=== PATIENT | female | born 1980 | race Caucasian/White ===

== ENCOUNTER 2019-02-15 16:11 | Inpatient (IN) | payer BC, OTHER ==
[2019-02-15] MEDS ORDERED: ONDANSETRON 4 MG/2 ML VIAL IVP STA (16:32)
[2019-02-15] MEDS ORDERED: SODIUM CHLORIDE 0.9% 1,000 ML IV ONE (16:33)
[2019-02-15] MEDS ORDERED: SODIUM CHLORIDE 0.9% 500 ML 500 ML IV ONE (16:33)
--- NOTE | 2019-02-15 16:33 | ED ---
Abdominal Pain HPI - General Source: patient Mode of arrival: ambulatory Limitations: no limitations <Danielle Gonzalez - Last Filed: 02/15/19 19:49> <uHgo Zelaya - Last Filed: 02/15/19 20:30> - General Chief Complaint: Abdominal Pain Stated Complaint: ABDOMINAL PAIN Time Seen by Provider: 02/15/19 16:19 - History of Present Illness Initial Comments: 38-year-old female presents emergency department for chief complaint of vomiting abdominal pain one hour prior to arrival. Patient states she has pain just above the bellybutton as well as retching vomiting. Patient states is mostly bile. Patient states she has had bowel movements. Patient states she has not had any sick contacts recent travel melanotic or bloody stools. Patient denies any hematemesis states that the vomiting is yellow. Patient states she cannot stop vomiting. Patient states his symptoms persisted for over an hour just severe abdominal pain she presented [facility] for further evaluation. Patient denies any lower abdominal tenderness. Patient denies any chest pain or shortness of breath. Patient states she does have surgical history of previous cholecystectomy. Patient denies . Remaining review of system negative. Upon arrival patient appears uncomfortable, she is currently vomiting. (Danielle Gonzalez) - Related Data Home Medications Medication Instructions Recorded Confirmed Ibuprofen [Motrin Ib] 400 mg PO Q6H PRN 02/15/19 02/15/19 Allergies Allergy/AdvReac Type Severity Reaction Status Date / Time No Known Allergies Allergy Verified 02/15/19 19:42 Review of Systems ROS Other: All systems not noted in ROS Statement are negative. <Danielle Gonzalez - Last Filed: 02/15/19 19:49> ROS Other: All systems not noted in ROS Statement are negative. <Hugo Zelaya - Last Filed: 02/15/19 20:30> ROS Statement: Those systems with pertinent positive or pertinent negative responses have been documented in the HPI. Past Medical History Past Medical History: No Reported History History of Any Multi-Drug Resistant Organisms: None Reported Past Surgical History: Cholecystectomy Past Psychological History: No Psychological Hx Reported Smoking Status: Never smoker Past Alcohol Use History: None Reported Past Drug Use History: None Reported <Danielle Gonzalez - Last Filed: 02/15/19 19:49> General Exam Limitations: no limitations <Danielle Gonzalez - Last Filed: 02/15/19 19:49> - General Exam Comments Initial Comments: General: The patient is awake and alert, vomiting Eye: Pupils are equal, round and reactive to light, extra-ocular movements are intact. No nystagmus. There is normal conjunctiva bilaterally. No signs of i cterus. Ears, nose, mouth and throat: There are moist mucous membranes and no oral lesions. Neck: The neck is supple, there is no tenderness or JVD. Cardiovascular: There is a regular rate and rhythm. No murmur, rub or gallop is appreciated. Respiratory: Lungs are clear to auscultation, respirations are non-labored, breath sounds are equal. No wheezes, stridor, rales, or rhonchi. Gastrointestinal: Soft, non-distended, nontender abdomen soft. The umbilicus, there is palpable hard mass, irreducible, other kumar abdomen without masses or organomegaly noted. There is no rebound, slight guarding. Bowel sounds are unremarkable. Musculoskeletal: Normal ROM, no tenderness. Strength 5/5. Sensation intact. Radial pulses equal bilaterally 2+. Neurological: A&O x 3. CN II-XII intact grossly, There are no obvious motor or sensory deficits. Coordination appears grossly intact. Speech is normal. Skin: Skin is warm and dry and no rashes or lesions are noted. Psychiatric: Cooperative, appropriate mood & affect, normal judgment. (Danielle Gonzalez) Course <Hugo Zelaya - Last Filed: 02/15/19 20:30> Vital Signs 02/15/19 02/15/19 02/15/19 16:16 17:34 20:23 Temperature 97.3 F L 98.0 F 98.2 F Pulse Rate 79 59 L Respiratory 22 16 Rate Blood Pressure 163/83 157/89 O2 Sat by Pulse 99 100 Oximetry - Consultations Consultation #1: With Dr. Fritz who will accept admission requesting NG tube (Hugo Zelaya) Medical Decision Making - Lab Data Result diagrams: 02/15/19 17:50 02/15/19 17:50 <Danielle Gonzalez - Last Filed: 02/15/19 19:49> - Lab Data Result diagrams: 02/15/19 17:50 02/15/19 17:50 <Hugo Zelaya - Last Filed: 02/15/19 20:30> - Medical Decision Making 38-year-old female presenting for vomiting abdominal pain. Patient abdominal pain and a small mass appeared to be an irreducible hernia. CT is obtained revealing incarcerated hernia with partial SBO , I applied ice to the area attempted reduction again however no success. Patient has leukocytosis. And continues to have vomiting despite antiemetics. At this time general surgery wa s contacted who recommended. (Danielle Gonzalez) - Lab Data Lab Results 02/15/19 02/15/19 02/15/19 Range/Units 17:50 17:50 20:01 WBC 13.3 H (3.8-10.6) k/uL RBC 5.16 (3.80-5.40) m/uL Hgb 13.5 (11.4-16.0) gm/dL Hct 40.9 (34.0-46.0) % MCV 79.4 L (80.0-100.0) fL MCH 26.1 (25.0-35.0) pg MCHC 32.9 (31.0-37.0) g/dL RDW 13.3 (11.5-15.5) % Plt Count 479 H (150-450) k/uL Neutrophils % 78 % Lymphocytes % 14 % Monocytes % 5 % Eosinophils % 2 % Basophils % 1 % Neutrophils # 10.4 H (1.3-7.7) k/uL Lymphocytes # 1.8 (1.0-4.8) k/uL Monocytes # 0.6 (0-1.0) k/uL Eosinophils # 0.2 (0-0.7) k/uL Basophils # 0.2 (0-0.2) k/uL Sodium 138 (137-145) mmol/L Potassium 4.4 (3.5-5.1) mmol/L Chloride 106 (98-107) mmol/L Carbon Dioxide 19 L (22-30) mmol/L Anion Gap 13 mmol/L BUN 14 (7-17) mg/dL Creatinine 0.78 (0.52-1.04) mg/dL Est GFR (CKD-EPI)AfAm >90 (>60 ml/min/1.73 sqM) Est GFR (CKD-EPI)NonAf >90 (>60 ml/min/1.73 sqM) Glucose 127 H (74-99) mg/dL Plasma Lactic Acid Bautista 2.3 H* (0.7-2.0) mmol/L Calcium 9.6 (8.4-10.2) mg/dL Total Bilirubin 0.7 (0.2-1.3) mg/dL AST 38 H (14-36) U/L ALT 32 (9-52) U/L Alkaline Phosphatase 68 (38-126) U/L Total Protein 7.8 (6.3-8.2) g/dL Albumin 4.4 (3.5-5.0) g/dL Lipase 31 (23-300) U/L Disposition Is patient prescribed a controlled substance at d/c from ED?: No Time of Disposition: 19:45 Decision to Admit Reason: Admit from EC Decision Date: 02/15/19 Decision Time: 19:45 <Danielle Gonzalez - Last Filed: 02/15/19 19:49> Is patient prescribed a controlled substance at d/c from ED?: No <Hugo Zelaya - Last Filed: 02/15/19 20:30> Clinical Impression: Incarcerated hernia, Abdominal pain, Leukocytosis, Intractable vomiting Disposition: ADMITTED IP TO THIS [facility] Condition: Stable
[2019-02-15 17:56] LABS: Basophils # (A) 0.2 k/uL (0-0.2); Basophils % (A) 1 %; Eosinophils # (A) 0.2 k/uL (0-0.7); Eosinophils % (A) 2 %; HCT 40.9 % (34.0-46.0); HGB 13.5 gm/dL (11.4-16.0); Lymphocytes # (A) 1.8 k/uL (1.0-4.8); Lymphocytes % (A) 14 %; MCH 26.1 pg (25.0-35.0); MCHC 32.9 g/dL (31.0-37.0); MCV 79.4 fL (80.0-100.0); Mean Platelet Volume 8.1; Monocytes # (A) 0.6 k/uL (0-1.0); Monocytes % (A) 5 %; Neutrophils # (A) 10.4 k/uL (1.3-7.7); Neutrophils % (A) 78 %; Platelet Count 479 k/uL (150-450); RBC 5.16 m/uL (3.80-5.40); RDW 13.3 % (11.5-15.5); WBC 13.3 k/uL (3.8-10.6)
[2019-02-15 18:05] LABS: ALT 32 U/L (9-52); AST 38 U/L (14-36); African American GFR (CKD) >90 (>60 ml/min/1.73 sqM); Albumin 4.4 g/dL (3.5-5.0); Alkaline Phosphatase 68 U/L (38-126); Anion Gap 13 mmol/L; Blood Urea Nitrogen 14 mg/dL (7-17); Calcium 9.6 mg/dL (8.4-10.2); Carbon Dioxide 19 mmol/L (22-30); Chloride 106 mmol/L (98-107); Glucose 127 mg/dL (74-99); Sodium 138 mmol/L (137-145); Total Bilirubin 0.7 mg/dL (0.2-1.3); Total Protein 7.8 g/dL (6.3-8.2)
[2019-02-15 18:06] LABS: Potassium 4.4 mmol/L (3.5-5.1)
--- NOTE | 2019-02-15 18:34 | CT ---
EXAMINATION TYPE: CT abdomen pelvis w con DATE OF EXAM: 02/15/2019 COMPARISON: None HISTORY: abdominal pain CT DLP: 2513.6 mGycm Automated exposure control for dose reduction was used. TECHNIQUE: Helical acquisition of images was performed from the lung bases through the pelvis. CONTRAST: Performed without Oral Contrast and with IV Contrast, patient injected with 100 mL of Isovue 300. FINDINGS: Lung bases are clear. There is no pleural effusion. Heart size is normal. There is no pericardial eff usion. There is minimal fatty infiltration of the liver. There are clips from cholecystectomy. Spleen appear s normal. Bile ducts are not dilated. Stomach appears normal. There is no evidence of pancreatic mass . There is no adrenal mass. Kidneys show satisfactory contrast opacification. There is no hydronephrosi s. There is no evidence of renal calculus. Ureters are not dilated. There is no retroperitoneal adeno matthew. Bladder distends smoothly. Uterus is anteverted. There is no free fluid in the pelvis. There i s no sign of pelvic mass. There is no inguinal hernia. There is umbilical hernia that contains incarcerated loop of small bowel. There is mild proximal smal l bowel distention with fluid. Small bowel however is not dilated. Small bowel measures up to 2 cm. Appendix appears normal. There is no ascites. There is no mesenteric edema. There is no evidence of f ree air. Lumbar spine is intact. Disc spaces are normal. There is no compression fracture. IMPRESSION: THERE IS INCARCERATED UMBILICAL HERNIA THAT CONTAINS SMALL BOWEL. THERE IS A PARTIAL MECHANICAL OBSTR UCTION.
[2019-02-15] MEDS ORDERED: METOCLOPRAMIDE 5 MG/ML 2 ML VIAL IVP STA (19:03)
[2019-02-15] MEDS ORDERED: NALOXONE 0.4 MG/ML 1 ML VIAL IV PRN (19:43)
[2019-02-15] MEDS ORDERED: ONDANSETRON 4 MG/2 ML VIAL IVP PRN ×2 (19:43→21:12)
[2019-02-15] MEDS: SODIUM CHLORIDE 0.9% 1,000 ML IV SCH (19:54)
[2019-02-15] MEDS: MORPHINE SULFATE 4 MG/ML SYRINGE IV PRN ×2 (20:07→23:30)
[2019-02-15] MEDS ORDERED: SODIUM CHLORIDE 0.9% 2,000 ML IV ONE (21:08)
[2019-02-15 21:31] VITALS: BMI 45.1
[2019-02-15] MEDS: PIPERACILLIN-TAZOBACTAM 3.375 GM in SODIUM CHLORIDE 0.9% 100 ML IVPB SCH (23:36)
[2019-02-16] MEDS: METOCLOPRAMIDE 5 MG/ML 2 ML VIAL IVP SCH ×3 (01:13→14:19)
[2019-02-16 02:51] VITALS: RESP 16
[2019-02-16] MEDS: SODIUM CHLORIDE 0.9% 1,000 ML IV SCH ×3 (06:33→15:21)
[2019-02-16] MEDS: PIPERACILLIN-TAZOBACTAM 3.375 GM in SODIUM CHLORIDE 0.9% 100 ML IVPB SCH ×2 (08:09→15:19)
[2019-02-16] MEDS ORDERED: ACETAMINOPHEN TAB 325 MG TAB PO PRN (08:30)
[2019-02-16 14:23] VITALS: BP 101/60; PULSE 62; TEMP 98.7
--- NOTE | 2019-02-16 15:20 | P.GSHP ---
History of Present Illness H&P Date: 02/16/19 CHIEF COMPLAINT: Small bowel obstruction HISTORY OF PRESENT ILLNESS: The patient is a 38 year old female who comes in with less than 24 hr history of acute onset moderate to severe periumbilical deborah n with obstipation. She has findings of incarcerated umbilcal hernia with small bowel obstruction found on imaging. Since admission and without nasogastric tube, she is passing flatus and having bowel movements now. She has no abdominal pain. No reports of fevers or chills. She had nausea. No acute vomiting. She is tolerating liquid diet. She reports prior episodes of crampy gas pain, intermittent for over 2 years. Since admission, she is doing well. PAST MEDICAL HISTORY: See list. PAST SURGICAL HISTORY: See list. MEDICATIONS: See list. ALLERGIES: See list. SOCIAL HISTORY: See list. FAMILY HISTORY: See list. REVIEW OF ORGAN SYSTEMS: CONSTITUTIONAL: No fevers or chills. No recent weight loss. EYES: Denies any trouble with vision. No glasses. HEENT: No difficulties with hearing. No nosebleeds. No difficulty swallowing. RESPIRATORY: Denies pneumonia. Denies any troubles with breathing or dyspnea on exertion. CARDIOVASCULAR: Denies any chest pain, palpitations, or recent heart attacks. GASTROINTESTINAL: Denies fatty food intolerance. Had change in bowel habits and gas bloat. GENITOURINARY: Denies any blood in urine or increased urinary frequency. NEUROLOGICAL: Denies any numbness or tingling along the distal extremities. No seizure disorders or headaches. MUSCULOSKELETAL: Occassional back pain, stiffness or joint arthritis. SKIN: No current skin cancer. No rash. PSYCHIATRIC: Denies current depression or suicidal thoughts. ENDOCRINE: Denies current thyroid disorders. Denies any blood sugar glucose intolerance. HEME/LYMPHATIC: Denies any lumps and bumps around the neck. No recent deep venous thrombosis. ALLERGY/IMMUNOLOGY: No immunoglobulin therapy. No immune deficiencies. BREAST: Denies current breast lumps, pain or nipple discharge. PHYSICAL EXAM: VITALS: Reviewed CONSTITUTIONAL: Well developed and in no acute distress. EYES: Conjuctivae without sclera icterus. Pupils are equally round and reactive to light. Extraocular movements grossly intact. HEAD, EARS, NOSE, THROAT: Moist buccal mucosa. Head is atraumatic, normocephalic. Hears conversational speech. No nasal drainage. Good dentition. NECK: Supple. No JV distention. No thyroidomegaly. RESPIRATORY: Non-labored respirations and equal bilateral excursions. No gross wheezes. CARDIOVASCULAR: Regular rate and rhythm. Extremities without moderate edema. Palpable 2+ radial pulses. ABDOMEN: Soft. Non-tender. Nondistended. LYMPH: No neck lymphadenopathy. No axillary lymphadenopathy. MUSCULOSKELETAL: Nail and fingers with good capillary refill. SKIN: Warm and well perfused with good skin turgor. NEUROLOGIC: Cranial nerves I through XII grossly intact. Sensation upper and extremities intact. No focal or lateralizing signs. PSYCH: Appropriate affect. Alert and oriented to person, place and time. Displays appropriate insight. CLINCAL LABS: Reviewed. WBC over 13,000 on admission. Platelets 479,000 elevated RADIOLOGY: Report reviewed with small bowel obstruction IMAGING: Independently reviewed with small bowel incarcerated at the umbilicus ASSESSMENT: 1. Incarcerated umbilical hernia with small bowel obstruction with PLAN: 1. She has improved since admission and may be discharged 2. Discharge instructions reviewed with outpatient hernia repair 3. Light diet and no lifting advised until follow up in the office. Past Medical History Past Medical History: No Reported History History of Any Multi-Drug Resistant Organisms: None Reported Past Surgical History: Cholecystectomy, Tonsillectomy Past Anesthesia/Blood Transfusion Reactions: Postoperative Nausea & Vomiting (PONV) Past Psychological History: No Psychological Hx Reported Smoking Status: Former smoker Past Alcohol Use History: None Reported Past Drug Use History: Marijuana Additional Drug Use History / Comment(s): Occasionial marijuana use - Past Family History Sister(s) Additional Family Medical History / Comment(s): kidney disease Mother Family Medical History: No Reported History Medications and Allergies Home Medications Medication Instructions Recorded Confirmed Type Ibuprofen [Motrin Ib] 400 mg PO Q6H PRN 02/15/19 02/15/19 History Allergies Allergy/AdvReac Type Severity Reaction Status Date / Time No Known Allergies Allergy Verified 02/15/19 19:42 Surgical - Exam Vital Signs Temp Pulse Resp BP Pulse Ox 97.3 F L 79 22 163/83 99 02/15/19 16:16 02/15/19 16:16 02/15/19 16:16 02/15/19 16:16 02/15/19 16:16 Results - Labs 02/16/19 16:00 09/27/19 17:50 Abnormal Lab Results - Last 24 Hours (Table) 02/15/19 02/15/19 02/15/19 Range/Units 17:50 17:50 20:01 WBC 13.3 H (3.8-10.6) k/uL MCV 79.4 L (80.0-100.0) fL Plt Count 479 H (150-450) k/uL Neutrophils # 10.4 H (1.3-7.7) k/uL Carbon Dioxide 19 L (22-30) mmol/L Glucose 127 H (74-99) mg/dL Plasma Lactic Acid Bautista 2.3 H* (0.7-2.0) mmol/L AST 38 H (14-36) U/L Diabetes panel 02/15/19 Range/Units 17:50 Sodium 138 (137-145) mmol/L Potassium 4.4 (3.5-5.1) mmol/L Chloride 106 (98-107) mmol/L Carbon Dioxide 19 L (22-30) mmol/L BUN 14 (7-17) mg/dL Creatinine 0.78 (0.52-1.04) mg/dL Glucose 127 H (74-99) mg/dL Calcium 9.6 (8.4-10.2) mg/dL AST 38 H (14-36) U/L ALT 32 (9-52) U/L Alkaline Phosphatase 68 (38-126) U/L Total Protein 7.8 (6.3-8.2) g/dL Albumin 4.4 (3.5-5.0) g/dL Calcium panel 02/15/19 Range/Units 17:50 Calcium 9.6 (8.4-10.2) mg/dL Albumin 4.4 (3.5-5.0) g/dL Pituitary panel 02/15/19 Range/Units 17:50 Sodium 138 (137-145) mmol/L Potassium 4.4 (3.5-5.1) mmol/L Chloride 106 (98-107) mmol/L Carbon Dioxide 19 L (22-30) mmol/L BUN 14 (7-17) mg/dL Creatinine 0.78 (0.52-1.04) mg/dL Glucose 127 H (74-99) mg/dL Calcium 9.6 (8.4-10.2) mg/dL Adrenal panel 02/15/19 Range/Units 17:50 Sodium 138 (137-145) mmol/L Potassium 4.4 (3.5-5.1) mmol/L Chloride 106 (98-107) mmol/L Carbon Dioxide 19 L (22-30) mmol/L BUN 14 (7-17) mg/dL Creatinine 0.78 (0.52-1.04) mg/dL Glucose 127 H (74-99) mg/dL Calcium 9.6 (8.4-10.2) mg/dL Total Bilirubin 0.7 (0.2-1.3) mg/dL AST 38 H (14-36) U/L ALT 32 (9-52) U/L Alkaline Phosphatase 68 (38-126) U/L Total Protein 7.8 (6.3-8.2) g/dL Albumin 4.4 (3.5-5.0) g/dL Assessment and Plan (1) Umbilical hernia with obstruction but no gangrene Status: Acute Code(s): K42.0 - UMBILICAL HERNIA WITH OBSTRUCTION, WITHOUT GANGRENE SNOMED Code(s): 766635395 (2) Morbid obesity due to excess calories Status: Acute Code(s): E66.01 - MORBID (SEVERE) OBESITY DUE TO EXCESS CALORIES SNOMED Code(s): 441895297 (3) Adult BMI 37.0-37.9 kg/sq m Status: Acute Code(s): Z68.37 - BODY MASS INDEX (BMI) 37.0-37.9, ADULT SNOMED Code(s): 218991135 (4) Abdominal pain Status: Acute Code(s): R10.9 - UNSPECIFIED ABDOMINAL PAIN SNOMED Code(s): 13233903 (5) Incarcerated hernia Status: Acute Code(s): K46.0 - UNSP ABDOMINAL HERNIA WITH OBSTRUCTION, WITHOUT GANGRENE SNOMED Code(s): 85091011 (6) Intractable vomiting Status: Acute Code(s): R11.10 - VOMITING, UNSPECIFIED SNOMED Code(s): 861030987 (7) Leukocytosis Status: Acute Code(s): D72.829 - ELEVATED WHITE BLOOD CELL COUNT, UNSPECIFIED SNOMED Code(s): 979016434 (8) Partial small bowel obstruction Status: Acute Code(s): K56.600 - PARTIAL INTESTINAL OBSTRUCTION, UNSPECIFIED TO CAUSE SNOMED Code(s): 800921164
--- NOTE | 2019-02-16 15:21 | P.DS ---
Providers Date of admission: 02/15/19 20:08 Expected date of discharge: 02/16/19 Attending physician: Anya Fritz Primary care physician: Farrah Malik - Discharge Diagnosis(es) (1) Periumbilical abdominal pain Status: Acute (2) Abdominal pain Status: Acute (3) Adult BMI 37.0-37.9 kg/sq m Status: Acute (4) Incarcerated hernia Status: Acute (5) Intractable vomiting Status: Acute (6) Leukocytosis Status: Acute (7) Morbid obesity due to excess calories Status: Acute (8) Partial small bowel obstruction Status: Acute (9) Umbilical hernia with obstruction but no gangrene Status: Acute Hospital Course: CHIEF COMPLAINT: Small bowel obstruction HISTORY OF PRESENT ILLNESS: The patient is a 38 year old female who comes in with less than 24 hr history of acute onset moderate to severe periumbilical pain with obstipation. She has findings of incarcerated umbilcal hernia with small bowel obstruction found on imaging. Since admission and without nasogastric tube, she is passing flatus and having bowel movements now. She has no abdominal pain. No reports of fevers or chills. She had nausea. No acute vomiting. She is tolerating liquid diet. She reports prior episodes of crampy gas pain, intermittent for over 2 years. Since admission, she is doing well. PAST MEDICAL HISTORY: See list. PAST SURGICAL HISTORY: See list. MEDICATIONS: See list. ALLERGIES: See list. SOCIAL HISTORY: See list. FAMILY HISTORY: See list. REVIEW OF ORGAN SYSTEMS: CONSTITUTIONAL: No fevers or chills. No recent weight loss. EYES: Denies any trouble with vision. No glasses. HEENT: No difficulties with hearing. No nosebleeds. No difficulty swallowing. RESPIRATORY: Denies pneumonia. Denies any troubles with breathing or dyspnea on exertion. CARDIOVASCULAR: Denies any chest pain, palpitations, or recent heart attacks. GASTROINTESTINAL: Denies fatty food intolerance. Had change in bowel habits and gas bloat. GENITOURINARY: Denies any blood in urine or increased urinary frequency. NEUROLOGICAL: Denies any numbness or tingling along the distal extremities. No seizure disorders or headaches. MUSCULOSKELETAL: Occassional back pain, stiffness or joint arthritis. SKIN: No current skin cancer. No rash. PSYCHIATRIC: Denies current depression or suicidal thoughts. ENDOCRINE: Denies current thyroid disorders. Denies any blood sugar glucose intolerance. HEME/LYMPHATIC: Denies any lumps and bumps around the neck. No recent deep venous thrombosis. ALLERGY/IMMUNOLOGY: No immunoglobulin therapy. No immune deficiencies. BREAST: Denies current breast lumps, pain or nipple discharge. PHYSICAL EXAM: VITALS: Reviewed CONSTITUTIONAL: Well developed and in no acute distress. EYES: Conjuctivae without sclera icterus. Pupils are equally round and reactive to light. Extraocular movements grossly intact. HEAD, EARS, NOSE, THROAT: Moist buccal mucosa. Head is atraumatic, normocephalic. Hears conversational speech. No nasal drainage. Good dentition. NECK: Supple. No JV distention. No thyroidomegaly. RESPIRATORY: Non-labored respirations and equal bilateral excursions. No gross wheezes. CARDIOVASCULAR: Regular rate and rhythm. Extremities without moderate edema. Palpable 2+ radial pulses. ABDOMEN: Soft. Non-tender. Nondistended. LYMPH: No neck lymphadenopathy. No axillary lymphadenopathy. MUSCULOSKELETAL: Nail and fingers with good capillary refill. SKIN: Warm and well perfused with good skin turgor. NEUROLOGIC: Cranial nerves I through XII grossly intact. Sensation upper and extremities intact. No focal or lateralizing signs. PSYCH: Appropriate affect. Alert and oriented to person, place and time. Di splays appropriate insight. CLINCAL LABS: Reviewed. WBC over 13,000 on admission. Platelets 479,000 elevated RADIOLOGY: Report reviewed with small bowel obstruction IMAGING: Independently reviewed with small bowel incarcerated at the umbilicus ASSESSMENT: 1. Incarcerated umbilical hernia with small bowel obstruction with PLAN: 1. She has improved since admission and may be discharged 2. Discharge instructions reviewed with outpatient hernia repair 3. Light diet and no lifting advised until follow up in the office. See HPI same day admit and discharge. Patient Condition at Discharge: Stable Plan - Discharge Summary Discharge Rx Participant: Yes New Discharge Prescriptions: No Action Ibuprofen [Motrin Ib] 400 mg PO Q6H PRN PRN Reason: Pain Discharge Medication List Ibuprofen [Motrin Ib] 400 mg PO Q6H PRN 02/15/19 [History] Follow up Appointment(s)/Referral(s): Anya Fritz MD [STAFF PHYSICIAN] - 02/19/19 Farrah Malik DO [Primary Care Provider] - 1-2 days Patient Instructions/Handouts: Umbilical Hernia (DC), Bowel Obstruction (DC) Activity/Diet/Wound Care/Special Instructions: Continue diet as tolerated. fluids are encouraged. No lifting pushing pulling over 4 pounds until cleared by surgeon. Avoid constipation. Please take Milk of Magnesia as needed for constipation. Follow up in the office MondayFebruary 19. Call physician wit any questions comments concerns worsening returning symptoms, fever 101.1 or higher, not tolerating diet or fluids, pain not controlled by prescribed medications. Discharge Disposition: HOME SELF-CARE
[2019-02-16 16:28] LABS: Basophils % (A) 0 %; Eosinophils # (A) 0.1 k/uL (0-0.7); Eosinophils % (A) 1 %; HCT 33.9 % (34.0-46.0); HGB 11.2 gm/dL (11.4-16.0); Hypochromasia Slight; Lymphocytes # (A) 1.8 k/uL (1.0-4.8); Lymphocytes % (A) 19 %; MCH 26.1 pg (25.0-35.0); MCHC 33.1 g/dL (31.0-37.0); Mean Platelet Volume 6.7; Monocytes # (A) 0.4 k/uL (0-1.0); Monocytes % (A) 5 %; Neutrophils % (A) 74 %; Platelet Count 389 k/uL (150-450); RBC 4.29 m/uL (3.80-5.40); RDW 13.2 % (11.5-15.5); WBC 9.4 k/uL (3.8-10.6)
== END 2019-02-16 16:15 | disposition home or self-care (01) | DRG 395 ==
LOC: EC 16:11 → 6PED 20:08
PROVIDERS: ADMIT Surgery Plastic and Reconstructive Surgery; ATTEND Surgery Plastic and Reconstructive Surgery
DX: K42.0 Umbilical hernia with obstruction, without gangrene (principal); E66.01 Morbid (severe) obesity due to excess calories; D72.829 Elevated white blood cell count, unspecified; Z68.37 Body mass index [BMI] 37.0-37.9, adult; Z87.891 Personal history of nicotine dependence; Z90.49 Acquired absence of other specified parts of digestive tract
CPT/HCPCS: 36415; 74177; 80053; 83605; 83690; 85025; 96361; 96374; 96375; 99285

== ENCOUNTER 2019-02-22 09:35 | Day surgery (SDC) | payer BC ==
[2019-02-19 14:54] VITALS: BMI 44.9
--- NOTE | 2019-02-21 19:45 | P.GSHP ---
History of Present Illness H&P Date: 02/22/19 CHIEF COMPLAINT: Incisional hernia. HISTORY OF PRESENT ILLNESS: The patient is a 38-year-old female who presents with a history of swelling along the umbilicus at a previous incision. Findings were consistent with possible incisional hernia. Now she presents for further evaluation and management. PAST MEDICAL HISTORY: Please see list. PAST SURGICAL HISTORY: Please see list. MEDICATIONS: Please see list. ALLERGIES: Please see list. SOCIAL HISTORY: Please see list. FAMILY HISTORY: Please see list. REVIEW OF ORGAN SYSTEMS: CONSTITUTIONAL: No reports of fevers or chills. GI: Denies any blood in stools or constipation. PHYSICAL EXAM: VITAL SIGNS: Stable GENERAL: Well-developed pleasant female in no acute distress. HEENT: No scleral icterus. Extraocular movements grossly intact. Moist buccal mucosa. NECK: Supple without lymphadenopathy. CHEST: Unlabored respirations. Equal bilateral excursions. CARDIOVASCULAR: Regular rate and rhythm. Distal 2+ pulses. ABDOMEN: Soft, nondistended. Swelling at umbilicus. Protuberant. MUSCULOSKELETAL: No clubbing, cyanosis, or edema. ASSESSMENT: 1. Incisional ventral hernia. 2. Morbid obesity, BMI 44.9 PLAN: 1. Recommend proceeding with robotic ventral hernia repair with mesh. 2. Benefits and risks of surgical intervention was discussed including possibility of open technique. 3. DVT prophylaxis. 4. Antibiotic prophylaxis. Past Medical History Past Medical History: No Reported History Additional Past Medical History / Comment(s): hernia History of Any Multi-Drug Resistant Organisms: None Reported Past Surgical History: Cholecystectomy, Tonsillectomy Past Anesthesia/Blood Transfusion Reactions: Postoperative Nausea & Vomiting (PONV) Smoking Status: Former smoker - Past Family History Sister(s) Additional Family Medical History / Comment(s): kidney disease Mother Family Medical History: No Reported History Medications and Allergies Home Medications Medication Instructions Recorded Confirmed Type Ibuprofen [Motrin Ib] 400 mg PO Q6H PRN 02/15/19 02/19/19 History Allergies Allergy/AdvReac Type Severity Reaction Status Date / Time No Known Allergies Allergy Verified 02/19/19 14:46
[~2019-02-22 09:35] MED LIST: ACETAMINOPHEN TAB 500 MG TAB PO STA; ALPRAZolam 0.5 MG TAB PO PRN; DEXAMETHASONE SOD PHOSPHATE 10 MG/ML 1 ML VIAL IV ONE; HEPARIN SODIUM,PORCINE 5,000 UNIT/ML 1 ML VIAL SQ ONE; LACTATED RINGERS 1,000 ML IV SCH; MIDAZOLAM 2 MG/2 ML VIAL IV PRN; ONDANSETRON 4 MG/2 ML VIAL IVP ONE; SCOPOLAMINE 1.5MG/72HR PATCH TRANSDERM ONE; ceFAZolin 3 GM in SODIUM CHLORIDE 0.9% 100 ML IVPB ONE
[2019-02-22 10:15] VITALS: RESP 16
[2019-02-22] MEDS ORDERED: LIDOCAINE 1% 20 ML VIAL (10MG/ML) FOR IV START INTRADERMA ONE (10:35)
[2019-02-22] MEDS ORDERED: fentaNYL (PF) 50 MCG/ML 2 ML AMP IVP ONE (10:43)
--- NOTE | 2019-02-22 11:20 | P.ANPRN ---
Procedure Note - Anesthesia - Nerve Block Performed Bilateral Rectus Abdominis Single Time Out Performed: Yes Date of Procedure: 02/22/19 Procedure Start Time: 10:42 Procedure Stop Time: 11:02 Location of Patient Procedure: PreOp Indication: Acute Post-Operative Pain Specifically requested for management of pain by DrAlem: Anya Fritz Sedation Type: Sedate with meaningful contact maintained Preparation: Sterile Prep Position: Supine Catheter: None Needle Types: Pajunk Needle Gauge: 18 (long) Ultrasound used to visualize needle placement: Yes Ultrasound used to observe medication spread: Yes Injectate: Other (see comment) (Ropivacaine 0.25%/lidocaine 0.5% 30 mL per side) Adjunct: Epinephrine (see comment for dilution ratio) (1:200,000) Blood Aspirated: No Pain Paresthesia on Injection Noted: No Resistance on Injection: Normal Image Stored and Saved: Yes Events: Uneventful and Well Tolerated (Patient's habitus required use of curvilinear low frequency ultrasound transducer.)
[2019-02-22] MEDS ORDERED: GLYCOPYRROLATE 0.2 MG/ML 2 ML VIAL ONE (11:33)
[2019-02-22] MEDS ORDERED: NEOSTIGMINE 1 MG/ML 10 ML VIAL ONE (11:33)
[2019-02-22] MEDS ORDERED: ROCURONIUM BROMIDE 10 MG/ML 10 ML VIAL IV ONE (11:33)
[2019-02-22] MEDS ORDERED: ROPIVACAINE 5 MG/ML 30 ML VIAL ONE (11:33)
[2019-02-22] MEDS ORDERED: fentaNYL (PF) 50 MCG/ML 2 ML AMP ONE (11:33)
[2019-02-22] MEDS ORDERED: LIDOCAINE 0.5% (PF) 5 MG/ML (50 ML SDV) ONE (11:33)
[2019-02-22] MEDS ORDERED: MIDAZOLAM 2 MG/2 ML VIAL ONE (11:33)
[2019-02-22] MEDS ORDERED: LIDOCAINE 1% INJ 10MG/ML (20 ML MDV) ONE (11:33)
[2019-02-22] MEDS ORDERED: HYDROmorphone (PF) 1 MG/ML ONE (11:33)
[2019-02-22] MEDS ORDERED: SUCCINYLCHOLINE CHLORIDE 100 MG/5 ML SYR IV ONE (11:33)
[2019-02-22] MEDS ORDERED: PROPOFOL 10 MG/ML 20 ML VIAL IV ONE (11:33)
[2019-02-22] MEDS ORDERED: KETOROLAC 30 MG/ML 1 ML VIAL ONE (11:33)
[2019-02-22] MEDS ORDERED: LIDOCAINE 1%-EPI 1:100,000 20 ML VIAL SQ ONE (12:27)
[2019-02-22] MEDS ORDERED: LACTATED RINGERS 1,000 ML IV ONE (12:53)
[2019-02-22 13:49] VITALS: TEMP 96.8
--- NOTE | 2019-02-22 14:12 | P.OP ---
Date of Procedure: 02/22/19 Description of Procedure: SURGEON: ANYA FRITZ MD PREOPERATIVE DIAGNOSES: 1. Initial incarcerated incisional hernia with history of bowel obstruction 2. Morbid obesity does due to excess calories, BMI 44.4 POSTOPERATIVE DIAGNOSES: 1. Initial incarcerated incisional hernia with history of bowel obstruction 2. Morbid obesity does due to excess calories, BMI 44.4 3. Strangulated incisional hernia involving mid transverse colon OPERATION: 1. Robotic-assisted da Ellyn Xi laparoscopic repair of initial strangulated incisional hernia 3-cm with mesh, ventralight ST mesh 11.4 cm 2. Robotic-assisted da Ellyn Xi laparoscopic wedge resection/partial colon resection of mid transverse colon for strangulated incisional hernia ANESTHESIA: General with local, regional block ESTIMATED BLOOD LOSS: 10 mL. SPECIMENS: Strangulated incisional hernia involving sidewall transverse colon COMPLICATIONS: None. FINDINGS: 1. Initial strangulated 3-cm incisional hernia involving sidewall of mid transverse colon resected using wedge resection/partial colon resection INDICATIONS: The patient is a 38-year-old female who presents with history of recent bowel obstruction due to incarcerated incisional hernia at the umbilicus. She has history of prior cholecystectomy with incision via the umbilicus. Surgical intervention with laparoscopic versus robotic and open techniques were reviewed. Placement of mesh was also reviewed. Benefits and risks were thoroughly described. Informed consent was obtained. DESCRIPTION OF PROCEDURE: The patient was brought into the operating room and laid in supine position. After general induction, the abdomen had been prepped and draped in standard sterile fashion. Ioban draping was also placed. Prior to incision, a timeout protocol was confirmed with surgical team regarding the patient's name including procedures to be performed. The robot was primed prior to the procedure. A field block using local anesthetic was placed along hernia site including the proposed port sites. Initial incision was made with an #11 blade along the left upper quadrant. A 0 degree 5 mm laparoscopic trocar entry was performed and insufflated. Diagnostic laparoscopy incarcerated hernia at the incision at the umbilicus involving the mid transverse colon. Two 8 mm ports were placed along the left lateral abdominal wall. The 5-mm port was exchanged for an 12 mm robotic port. Placements of the ports were 15 cm from the target anatomy and 10 cm apart. The da Ellyn Xi robot was previously primed, prepped and draped then docked along the left side of the patient. I then sat at the robot Da Ellyn Xi console where working arms of the robot including Bovie cautery connected to robotic scissors, vessel sealer, needle tractor driver teamster, and graspers placed by the sales and marketing assistant. Fascial defect of 3 cm of the incision of the umbilicus was identified after cleaning the peritoneal fat of the abdominal wall and reducing an incarcerated sidewall of the mid transverse colon which was completely ischemic and infarcted. A 12 mm port was placed along the right upper quadrant for placement of the mesh and for sutures. The incarcerated contents was reduced as the peritoneal fat was cleaned from the abdominal wall. Next, hemostasis was checked with cautery. The hernia defect was oversewn using #1 Stratafix with fascial imbrication x 3. Next, ventralight ST mesh 11.4 cm was placed with the rough side towards the abdominal wall. 2-0 VLOC sutures were used to fixate the mesh. To address the infarcted sidewall of the transverse colon, a 45 mm Smart technology robotic stapler was fired with 2 blue loads from the left upper quadrant to wedge resect the mid transverse colon at the tinea coli. Hemostasis was checked with cautery. A final endoscopic imaging was obtained. All instruments and pneumoperitoneum were evacuated from the abdominal cavity. Specimen was removed using Endo Catch bag. The da Ellyn Xi robot was undocked from the patient. I re-scrubbed into the case for closure of incisions. The fascia of the 12-mm port was probed and less than 8-mm in size. The incisions were reapproximated using 4-0 Monocryl in an interrupted subcuticular fashion. Liquid glue was applied to the skin after cleansing the skin with normal saline and dilute hydrogen peroxide. An abdominal binder was placed. At the end of the procedure, needle, sponge, and instrument count had been verified correct by energy technician. The patient was taken to the postanesthesia care unit in stable condition. Plan - Discharge Summary Discharge Rx Participant: Yes New Discharge Prescriptions: New Ibuprofen [Motrin] 600 mg PO Q8HR PRN #30 tab PRN Reason: Pain Acetaminophen Tab [Tylenol Tab] 500 mg PO Q6H PRN #30 tablet PRN Reason: Pain No Action Ibuprofen [Motrin Ib] 400 mg PO Q6H PRN PRN Reason: Pain Discharge Medication List Ibuprofen [Motrin Ib] 400 mg PO Q6H PRN 02/15/19 [History] Acetaminophen Tab [Tylenol Tab] 500 mg PO Q6H PRN #30 tablet 02/22/19 [Rx] Ibuprofen [Motrin] 600 mg PO Q8HR PRN #30 tab 02/22/19 [Rx] Follow up Appointment(s)/Referral(s): Anya Fritz MD [STAFF PHYSICIAN] - 02/26/19 Patient Instructions/Handouts: Laparoscopic Herniorrhaphy (IP), Abdominal Binder (DC) Activity/Diet/Wound Care/Special Instructions: May shower. No lifting for 4 pounds in 4 weeks, March 25, 2019. No bathtub soaks for 14 days, . Wear abdominal binder daily for comfort except for showering. Discharge Disposition: HOME SELF-CARE
[2019-02-22] MEDS ORDERED: ONDANSETRON 4 MG/2 ML VIAL IVP ONE (14:53)
[2019-02-22 15:03] VITALS: BP 136/82; PULSE 73
== END 2019-02-22 15:33 | disposition home or self-care (01) ==
LOC: OR 09:35
PROVIDERS: ATTEND Surgery Plastic and Reconstructive Surgery
DX: K43.0 Incisional hernia with obstruction, without gangrene (principal); K21.9 Gastro-esophageal reflux disease without esophagitis; E66.01 Morbid (severe) obesity due to excess calories; Z68.41 Body mass index [BMI] 40.0-44.9, adult; Z87.891 Personal history of nicotine dependence; Z84.1 Family history of disorders of kidney and ureter; Z90.49 Acquired absence of other specified parts of digestive tract
CPT/HCPCS: 49655; S2900; 64488; 81025; 88302; 88307